=== PATIENT | male | born 1970 | race Caucasian/White ===

== ENCOUNTER 2017-11-12 15:23 | Outpatient (CLI) | payer OTHER ==
[~2017-11-12 15:23] MED LIST: PERCOCET 10-321 EACH PO
== END 2017-11-12 18:04 | disposition home or self-care (01) ==
LOC: RAD 15:23
DX: M25.561 Pain in right knee (principal)

== ENCOUNTER 2017-11-15 12:03 | Outpatient (CLI) | payer OTHER | END 2017-11-15 15:37 | disposition home or self-care (01) | LOC: RAD 12:03 | DX: M25.562 Pain in left knee (principal); M54.2 Cervicalgia ==